=== PATIENT | female | born 1990 | race Caucasian/White ===

== ENCOUNTER 2017-07-24 13:19 | Emergency (ER) | payer OTHER ==
[2017-07-24 13:28] VITALS: BP 122/77; PULSE 86; RESP 20; TEMP 98.1
--- NOTE | 2017-07-24 13:38 | ED ---
General Adult HPI - General Chief complaint: Head Injury Stated complaint: Fall/Head Injury-[facility] Time Seen by Provider: 07/24/17 13:33 Source: patient, RN notes reviewed Mode of arrival: wheelchair Limitations: no limitations - History of Present Illness Initial comments: 27-year-old female presents to the emergency department with a chief complaint of fall. She slipped on the last step leaving a house and fell backwards onto her bottom and hit the back of her head. She states that she has a hard time remembering some of the events after the incident but she did not pass out. She states that she has little bit of a headache there is been no nausea or vomiting. Otherwise acting normally. She also admits to some left-sided low back pain from the fall as well. She thinks this is where she landed. She was able to get by herself. The incident and ambulate. At about a half since the incident. Patient was concerned due to the injury so she thought that she should be evaluated. Patient denies any recent fever, chills, shortness of breath, chest pain, abdominal pain, nausea vomiting, numbness or tingling, dysuria or hematuria, constipation or diarrhea, or visual changes, or any other current symptoms. - Related Data Home Medications Medication Instructions Recorded Confirmed No Known Home Medications [No 07/24/17 07/24/17 Known Home Medications] Allergies Allergy/AdvReac Type Severity Reaction Status Date / Time alprazolam [From Xanax] AdvReac PARANOID Verified 07/24/17 14:15 Review of Systems ROS Statement: Those systems with pertinent positive or pertinent negative responses have been documented in the HPI. ROS Other: All systems not noted in ROS Statement are negative. Past Medical History Past Medical History: No Reported History History of Any Multi-Drug Resistant Organisms: None Reported Past Surgical History: No Surgical Hx Reported Past Psychological History: No Psychological Hx Reported Smoking Status: Never smoker Past Alcohol Use History: Occasional Past Drug Use History: None Reported General Exam - General Exam Comments Initial Comments: General: The patient is awake and alert, in no distress, and does not appear acutely ill. Eye: Pupils are equal, round and reactive to light, extra-ocular movements are intact; there is normal conjunctiva bilaterally. No signs of icterus. Ears, nose, mouth and throat: There are moist mucous membranes. Neck: The neck is supple, there is no tenderness. Cardiovascular: There is a regular rate and rhythm. No murmur, rub or gallop is appreciated. Respiratory: Lungs are clear to auscultation, respirations are non-labored, breath sounds are equal. No wheezes, stridor, rales, or rhonchi. Gastrointestinal: Soft, non-distended, non-tender abdomen without masses or organomegaly noted. There is no rebound or guarding present. No CVA tenderness. Bowel sounds are unremarkable. Back: There is no tenderness to palpation in the midline. Tenderness over the left gluteal region. There is no obvious deformity. No rashes noted. Musculoskeletal: Normal ROM, no tenderness, There is no pedal edema. There is no calf tenderness or swelling. Sensation intact. Pulses equal bilaterally 2+. Neurological: CN II-XII intact, There are no obvious motor or sensory deficits. Coordination appears grossly intact. Speech is normal. Skin: Skin is warm and dry and no rashes or lesions are noted. Psychiatric: Cooperative, appropriate mood & affect, normal judgment. Limitations: no limitations Course Vital Signs 07/24/17 13:25 Temperature 98.1 F Pulse Rate 86 Respiratory 20 Rate Blood Pressure 122/77 O2 Sat by Pulse 100 Oximetry Medical Decision Making - Medical Decision Making 27-year-old female presents for a fall at work. At this time patient's imaging has been reviewed. At this time we discussed the patient's head injury as well as the lumbar strain. We discussed return parameters discussed follow-up and all questions. Patient family stated the C[facility] management this plan. All questions have been answered. They will be discharged. - Radiology Data Radiology results: report reviewed, image reviewed Disposition Clinical Impression: Concussion without loss of consciousness, Lumbar strain Disposition: HOME SELF-CARE Condition: Stable Instructions: Concussion (ED) Additional Instructions: Please use medication as discussed. Please follow up with family doctor if symptoms have not improved over the next two days. Please return to the emergency room if your symptoms increase or worsen or for any other concerns. Referrals: Arthur Campuzano MD [Primary Care Provider] - 1-2 days Time of Disposition: 14:22
--- NOTE | 2017-07-24 14:12 | CT ---
EXAMINATION TYPE: CT brain cspine wo con DATE OF EXAM: 07/24/2017 COMPARISON: CT brain and cervical spine April 15, 2014 HISTORY: fall/head injury with headache and neck pain. CT DLP: 2077 mGycm. Automated Exposure Control for Dose Reduction was Utilized. TECHNIQUE: CT scan of the head and cervical spine are performed without contrast. FINDINGS: There is no acute intracranial hemorrhage, mass effect, or midline shift identified. The ventricles and sulci are within normal limits in size. The globes are intact and the visualized sin uses are clear. The calvarium is intact. Cervical spine is visualized in its entirety from C1 through upper thoracic levels and demonstrates s traightened alignment without evidence of acute fracture or dislocation. Prevertebral soft tissue ap pears within normal limits. The C1-C2 articulation is within normal limits on the coronal images. A rtifact from patient's body habitus limits evaluation of lower cervical levels. Vertebral body height s and disc space heights are maintained. No large posterior disc herniations are seen on sagittal or axial images. Visualized lungs are grossly clear. Thyroid gland is felt within normal limits. IMPRESSION: 1. There is no acute fracture or dislocation evident in the cervical spine. 2. No acute intracranial hemorrhage, mass effect, or midline shift is seen.
--- NOTE | 2017-07-24 14:14 | XR ---
EXAMINATION TYPE: XR lumbar spine 2 or 3V DATE OF EXAM: 07/24/2017 CLINICAL HISTORY: Fall injury today with low back pain. TECHNIQUE: Frontal and lateral images of the lumbar spine are obtained. COMPARISON: None FINDINGS: There are 4 lumbar type vertebral bodies redemonstrated. There is a transitional L5 verteb ra redemonstrated. The lumbar spine shows satisfactory alignment without evidence of acute fracture or dislocation. Vertebral body heights and disk space heights are within normal limits. There is part ial visualization of surgical hardware in the right acetabulum on current lateral view. The overlying soft tissue appears unremarkable. IMPRESSION: No acute fracture or dislocation is seen in the lumbar spine.
== END 2017-07-24 14:35 | disposition home or self-care (01) ==
LOC: EC 13:19
DX: S06.0X0A Concussion without loss of consciousness, initial encounter (principal); S39.012A Strain of muscle, fascia and tendon of lower back, initial encounter; Z88.8 Allergy status to other drugs, medicaments and biological substances; W10.9XXA Fall (on) (from) unspecified stairs and steps, initial encounter; W22.8XXA Striking against or struck by other objects, initial encounter; Y92.69 Other specified industrial and construction area as the place of occurrence of the external cause; Y99.0 Civilian activity done for income or pay
CPT/HCPCS: 70450; 72100; 72125; 99284

== ENCOUNTER → 2020-10-06 | Outpatient (CLI) | payer BC ==
[2020-10-06 18:18] LABS: DHEA Sulfate 251.3 ug/dL (26.0-430.0)
[2020-10-06 18:46] LABS: Progesterone 0.7 ng/mL
[2020-10-06 18:49] LABS: Luteinizing Hormone 1.7 mIU/mL; Prolactin 7.3 ng/mL (2.8-29.2)
[2020-10-06 18:50] LABS: Follicle Stimulating Hormone 5.7 mIU/mL
== END | disposition home or self-care (01) ==
LOC: LABWHC1 09:06
PROVIDERS: ATTEND Obstetrics & Gynecology
DX: N91.2 Amenorrhea, unspecified (principal); N97.0 Female infertility associated with anovulation
CPT/HCPCS: 36415; 82397; 82627; 82670; 83001; 83002; 84144; 84146; 84403

== ENCOUNTER → 2020-12-13 | Outpatient (CLI) | payer BC | END | disposition home or self-care (01) | LOC: LABWHC1 12:19 | PROVIDERS: ATTEND Obstetrics & Gynecology | DX: N97.0 Female infertility associated with anovulation (principal) | CPT/HCPCS: 36415; 84144 ==

== ENCOUNTER 2021-09-20 10:32 | Outpatient (CLI) | payer BC ==
[2021-09-20 11:29] LABS: Amorphous Sediment,Urine Rare /hpf; Appearance,Urine Turbid (Clear); Bacteria,Urine Few /hpf; Bilirubin,Urine Negative (Negative); Blood,Urine Negative (Negative); Color,Urine Yellow; Glucose,Urine (UA) Negative (Negative); Ketones,Urine Negative (Negative); Leukocyte Esterase,Urine Large (Negative); Mucus,Urine Many /hpf; Nitrite,Urine Negative (Negative); Protein,Urine 1+ (Negative); RBC,Urine 6 /hpf (0-5); Specific Gravity,Urine 1.023 (1.001-1.035); Squamous Epithelial Cell,Urine 37 /hpf (0-4); Urobilinogen,Urine <2.0 mg/dL (<2.0); WBC,Urine 168 /hpf (0-5)
[2021-09-20 12:19] VITALS: BP 120/62; PULSE 100; RESP 18; TEMP 97.4
--- NOTE | 2021-10-06 12:37 | P.MSEPDOC ---
Presenting Problems - Arrival Data Date of Arrival on Unit: 09/20/21 Time of Arrival on Unit: 10:32 Mode of Transport: Ambulatory - Complaint OB-Reason for Admission/Chief Complaint: Other Comment: pt presents to triage for elevated bp's at home, 140's/80's, heaches and swelling in hands and feet, and face, Medical History - Information : 1 Para: 0 Term: 0 : 0 Abortions: Spontaneous or Elective: 0 Number of Living Children: 0 - Gestational Age Gestational Age by KRYSTAL (wks/days): 38 Weeks and 4 Days - History Complications: GBS+ Comment: pt is scheduled section on 09/26 Review of Systems - Review of Systems Constitutional: No problems Breast: No problems ENT: No problems Cardiovascular: No problems Respiratory: No problems Gastrointestinal: No problems Genitourinary: No problems Musculoskeletal: No problems Neurological: No problems Skin: No problems Vital Signs - Temperature Temperature: 97.4 F Temperature Source: Temporal Artery Scan - Pulse Right Brachial Pulse Rate: 100 Pulse Assessment Method: Automatic Cuff - Respirations Respiratory Rate: 18 Oxygen Delivery Method: Room Air - Blood Pressure Right Arm Blood Pressure: 120/62 Blood Pressure Mean: 81 Blood Pressure Source: Automatic Cuff Medical Screen Scoring - Assessment - Baby A Baseline FHR: 140 Heart Rate - NICHD Category: Category I (Normal) NST: Reactive Physician Notification - Physician Notified Physician Notified Date: 09/20/21 Physician Notified Time: 11:17 Physician: Nemo Street Order Received: Yes - Notification Comment Comment: pt's bp's wnl while in triage, ua was sent, urine culture ordered, reactive nst, pt to follow up with Dr. Street on Saturday in the office at scheduled appt Maternal Triage Index - Maternal Triage Index Presenting for scheduled procedure w/no complaint: No - Stat/Priority 1 Stat Priority 1: No - Urgent/Priority 2 Urgent Priority 2: No - Prompt/Priority 3 Prompt Priority 3: Yes Criteria Met for Priority 3: pt presents to triage for elevated bp's at home, headaches and swelling, 38 2/7 GA Disposition - Disposition OB Disposition: Triage, Discharge to home, Written follow up instructions reviewed Discharge Date: 09/20/21 Discharge Time: 11:55 I agree with the RN Medical Screening Exam: Yes Case reviewed; plan agreed upon as documented in EMR&OBIX.: Yes Diagnosis: OTHER SPECIFIED COMPLICATIONS OF LABOR AND DELIVERY
== END 2021-09-20 11:55 | disposition home or self-care (01) ==
LOC: FBPOP 10:32
PROVIDERS: ATTEND Obstetrics & Gynecology
DX: O26.893 Other specified pregnancy related conditions, third trimester (principal); R51.9 Headache, unspecified; M79.89 Other specified soft tissue disorders; Z3A.38 38 weeks gestation of pregnancy
CPT/HCPCS: 59025; 81001; 87086; 99215

== ENCOUNTER 2021-09-26 05:58 | Inpatient (IN) | payer BC ==
[2021-09-26] MEDS ORDERED: LACTATED RINGERS 1,000 ML IV ONE (06:28)
[2021-09-26] MEDS ORDERED: CITRIC ACID-SODIUM CITRATE 15 ML CUP PO ONE (06:28)
[2021-09-26 06:45] LABS: Basophils % (A) 0 %; Eosinophils % (A) 1 %; HCT 34.3 % (34.0-46.0); HGB 11.7 gm/dL (11.4-16.0); Lymphocytes # (A) 1.1 k/uL (1.0-4.8); Lymphocytes % (A) 18 %; MCH 31.1 pg (25.0-35.0); MCHC 34.1 g/dL (31.0-37.0); MCV 91.4 fL (80.0-100.0); Mean Platelet Volume 9.2; Monocytes # (A) 0.4 k/uL (0-1.0); Monocytes % (A) 6 %; Neutrophils # (A) 4.8 k/uL (1.3-7.7); Neutrophils % (A) 74 %; Platelet Count 224 k/uL (150-450); RBC 3.76 m/uL (3.80-5.40); RDW 13.9 % (11.5-15.5); WBC 6.4 k/uL (3.8-10.6)
[2021-09-26] MEDS ORDERED: ceFAZolin 3 GM in SODIUM CHLORIDE 0.9% 100 ML IVPB ONE (07:00)
--- NOTE | 2021-09-26 07:41 | P.HPOB ---
History of Present Illness H&P Date: 09/26/21 Chief Complaint: primary low transverse 31-year-old presents at 39 weeks and 1 day for a primary low transverse C- section. She has a history of an acetabulum reconstruction on the right hip. She's been having pain with this. Throughout the and she would be unable to get in any proper position to deliver the baby vaginally. Review of Systems All systems: negative Constitutional: Denies chills, Denies fever Eyes: denies blurred vision, denies pain Ears, nose, mouth and throat: Denies headache, Denies sore throat Cardiovascular: Denies chest pain, Denies shortness of breath Respiratory: Denies cough Gastrointestinal: Denies abdominal pain, Denies diarrhea, Denies nausea, Denies vomiting Genitourinary: Denies dysuria, Denies hematuria Musculoskeletal: Denies myalgias Integumentary: Denies pruritus, Denies rash Neurological: Denies numbness, Denies weakness Psychiatric: Denies anxiety, Denies depression Endocrine: Denies fatigue, Denies weight change Past Medical History Past Medical History: No Reported History History of Any Multi-Drug Resistant Organisms: None Reported Past Surgical History: Orthopedic Surgery Additional Past Surgical History / Comment(s): Right hip sx Past Anesthesia/Blood Transfusion Reactions: No Reported Reaction Past Psychological History: No Psychological Hx Reported Smoking Status: Never smoker Past Alcohol Use History: Occasional Past Drug Use History: None Reported - Past Family History Mother Family Medical History: Deep Vein Thrombosis (DVT) Medications and Allergies Home Medications Medication Instructions Recorded Confirmed Type Pnv No.95/Ferrous Fum/Folic AC 1 tab PO DAILY 09/20/21 09/26/21 History [ Multivitamin Tablet] Allergies Allergy/AdvReac Type Severity Reaction Status Date / Time alprazolam [From Xanax] AdvReac PARANOID Verified 09/26/21 06:25 Exam Osteopathic Statement: *. No significant issues noted on an osteopathic structural exam other than those noted in the History and Physical/Consult. Vital Signs Temp Pulse Resp BP Pulse Ox 09/26/21 06:15 97.6 F 84 17 127/69 98 Intake and Output 09/25/21 09/26/21 09/26/21 22:59 06:59 14:59 Other: Weight 129.274 kg Heart: Regular rate and rhythm Lungs: Clear to auscultation bilaterally Abdomen: Soft, nontender Extremities: Negative Homans sign Results Result Diagrams: 09/26/21 06:25 Abnormal Lab Results - Last 24 Hours (Table) 09/26/21 Range/Units 06:25 RBC 3.76 L (3.80-5.40) m/uL Assessment and Plan (1) 39 weeks gestation of Current Visit: Yes Status: Acute Code(s): Z3A.39 - 39 WEEKS GESTATION OF SNOMED Code(s): 35374831 (2) History of hip surgery Current Visit: Yes Status: Acute Code(s): Z98.890 - OTHER SPECIFIED POS TPROCEDURAL STATES SNOMED Code(s): 122465971 Plan: 1. primary low transverse
[2021-09-26] MEDS ORDERED: KETOROLAC 15 MG/ML 1 ML VIAL ONE (07:53)
[2021-09-26] MEDS ORDERED: ONDANSETRON 4 MG/2 ML VIAL ONE (07:53)
[2021-09-26] MEDS ORDERED: MORPHINE SULFATE (PF) 0.3 MG/0.3 ML SYR ONE (07:53)
[2021-09-26] MEDS ORDERED: OXYTOCIN 30 UNITS/500 ML NS BAG IV ONE (07:53)
[2021-09-26] MEDS ORDERED: NALBUPHINE 10 MG/ML (1 ML AMP) ONE (07:53)
--- NOTE | 2021-09-26 08:40 | P.OP ---
Date of Procedure: 09/26/21 Preoperative Diagnosis: 1. at 39 weeks 1 day 2. history of acetabulum reconstruction, hip pain Postoperative Diagnosis: 1. at 39 weeks 1 day 2. history of acetabulum reconstruction, hip pain Procedure(s) Performed: Primary low transverse Anesthesia: spinal Surgeon: Nemo Street [employer] Supervisor #1: Pravin Salinas Estimated Blood Loss (ml): 400 IV fluids (ml): 700 Urine output (ml): 100 Pathology: none sent Condition: stable Disposition: floor Operative Findings: viable male. Apgars 9,9. weight 9#7oz. normal uterus, tubes and ovaries Description of Procedure: Patient was taken to the operating room where spinal anesthesia was found be adequate. She was prepped and draped in normal sterile fashion in dorsal supine position with a leftward tilt. Pfannenstiel skin incision was made the scalpel and carried through to the underlying layer of fascia with the scalpel. Fascia was incised in midline and carried bilaterally with the Rodriguez scissors. The supe rior aspect of the fascial incision was grasped with Mel clamps elevated and the underlying rectus muscles dissected off with the Rodriguez's. Attention was then turned to inferior aspect of same incision which in a similar fashion was grasped tented up and the underlying rectus muscles dissected off with the Rodriguez's. The rectus muscles were the midline and the peritoneum was identified tented up and entered sharply with the scalpel. The incision was extended superiorly and inferiorly with good visualization of the bladder. The bladder blade was inserted and the vesicouterine peritoneum was incised the Metzenbaums then carried bilaterally and bladder flap created digitally. A low transverse incision was then made on the uterus with the scalpel. This was carried bilaterally and digital manner. Infant's head delivered atraumatically, nose and mouth bulb suctioned, cord clamped and cut, infant handed off to waiting nurses. Apgars 9,9, weight 9 lbs. 7 oz. Placenta delivered manually, intact with three-vessel cord. The uterus is exteriorized and cleared of all clots and debris. The uterine incision was closed with 0 Vicryl in a running locked fashion. Second layer of the same sutures used in imbricating fashion to obtain excellent hemostasis. Both ovaries and tubes appeared normal. The uterus was placed back into the abdomen. The peritoneum was reapproximated us ing 2-0 Vicryl in a running fashion. The muscles were reapproximated using 2-0 Vicryl in interrupted fashion. The fascia was reapproximated using 0 Vicryl in a running fashion. The subcutaneous tissues closed with 3-0 Vicryl running fashion. The skin was closed jamil. Patient tolerated the procedure well, sponge and instrument counts were correct times 2 and she was taken to the recovery room in stable condition.
[2021-09-26] MEDS: LACTATED RINGERS 1,000 ML IV SCH ×4 (09:49→23:30)
[2021-09-26] MEDS ORDERED: diphenhydrAMINE 50 MG CAP PO PRN (10:41)
[2021-09-26] MEDS ORDERED: METOCLOPRAMIDE 5 MG/ML 2 ML VIAL IVP PRN (10:41)
[2021-09-26] MEDS ORDERED: diphenhydrAMINE 25 MG CAP PO PRN (10:41)
[2021-09-26] MEDS ORDERED: ONDANSETRON 4 MG/2 ML VIAL IVP PRN (10:41)
[2021-09-26] MEDS ORDERED: NALOXONE 0.4 MG/ML 1 ML VIAL IV PRN (10:41)
[2021-09-26] MEDS ORDERED: diphenhydrAMINE 50 MG/ML 1 ML VIAL IVP PRN ×2 (10:41)
[2021-09-26] MEDS ORDERED: ZOLPIDEM 5 MG TAB PO PRN (10:41)
[2021-09-26] MEDS ORDERED: SIMETHICONE 80 MG CHEWABLE PO PRN (10:41)
[2021-09-26] MEDS ORDERED: OXYTOCIN 30 UNITS/500 ML NS 30 UNIT in SALINE 1 500ML.BAG IV SCH (10:45)
[2021-09-26] MEDS: ACETAMINOPHEN TAB 500 MG TAB PO SCH ×2 (13:14→20:25)
[2021-09-26] MEDS: KETOROLAC 15 MG/ML 1 ML VIAL IVP SCH ×2 (15:11→21:19)
[2021-09-26] MEDS: IBUPROFEN 600 MG TAB PO SCH ×2 (15:12→23:30)
[2021-09-26] MEDS: SENNOSIDES-DOCUSATE SODIUM 1 EACH TAB PO SCH (20:24)
[2021-09-27] MEDS: ACETAMINOPHEN TAB 500 MG TAB PO SCH ×4 (01:43→20:04)
[2021-09-27] MEDS: LACTATED RINGERS 1,000 ML IV SCH ×3 (03:28→05:09)
[2021-09-27] MEDS: KETOROLAC 15 MG/ML 1 ML VIAL IVP SCH (04:10)
[2021-09-27] MEDS: IBUPROFEN 600 MG TAB PO SCH ×4 (05:08→22:57)
--- NOTE | 2021-09-27 07:45 | P.PN ---
Progress Note - Text Progress Note Date: 09/27/21 Ms. Calzada is a 31-year-old female had a history of under spinal anal gesia with Astramorph 300 g for postop pain. Today patient is comfortable sitting in her bed. Today patient rated her pain level 4-5 out of 10 in severity. Denied any fever, drowsiness, confusion. Denied any weakness, tingling sensation in her lower extremities. Denied any bowel or bladder problems. Moving all extremities without any difficulty. Able to walk without any difficulties. Vitals: Hemodynamically stable Continue oral pain medication as per primary team.
[2021-09-27] MEDS: SENNOSIDES-DOCUSATE SODIUM 1 EACH TAB PO SCH ×2 (09:40→20:05)
[2021-09-27 11:01] LABS: Basophils % (A) 0 %; Eosinophils % (A) 0 %; HCT 28.4 % (34.0-46.0); Lymphocytes # (A) 0.8 k/uL (1.0-4.8); Lymphocytes % (A) 13 %; MCH 31.2 pg (25.0-35.0); MCV 94.5 fL (80.0-100.0); Mean Platelet Volume 9.1; Monocytes # (A) 0.3 k/uL (0-1.0); Monocytes % (A) 5 %; Neutrophils # (A) 4.7 k/uL (1.3-7.7); Neutrophils % (A) 79 %; Platelet Count 170 k/uL (150-450); RDW 14.6 % (11.5-15.5)
[2021-09-27 11:09] LABS: HGB 9.4 gm/dL (11.4-16.0)
--- NOTE | 2021-09-27 13:13 | P.PNOBGPC ---
Subjective - Subjective Principal diagnosis: S/P 1*LTCS POD #1 Interval history: Pt seen and examined. denies N/V, F/C, CP, SOB or calf pain. Patient reports: Reports appetite normal, Reports voiding normally, Reports pain well controlled, Reports ambulating normally [place]: doing well Objective - Vital Signs Latest vital signs: Vital Signs Temp Pulse Resp BP Pulse Ox 09/27/21 08:00 97.8 F 101 H 16 122/82 95 09/27/21 04:00 98.0 F 84 16 107/57 98 09/27/21 00:00 97.9 F 77 16 115/74 98 09/26/21 20:00 98.1 F 81 15 125/80 99 09/26/21 16:00 98.1 F 84 16 109/71 96 Intake and Output 09/26/21 09/27/21 09/27/21 22:59 06:59 14:59 Intake Total 500 480 Output Total 100 1250 300 Balance 400 -770 -300 Intake: Oral 500 480 Output: Urine 100 1250 300 Straight 350 Uretheral (Dai) 100 Other: # Voids 2 # Bowel Movements 1 - Exam Lungs: bilateral: normal Chest: Normal S1, Normal S2 Extremities: Present: normal Abdomen: Present: normal appearance, soft. Absent: distention, tenderness Incision: Present: normal, dry, intact Uterus: Present: normal, firm - Labs Labs: Abnormal Lab Results - Last 24 Hours (Table) 09/27/21 Range/Units 09:57 RBC 3.00 L (3.80-5.40) m/uL Hgb 9.4 L D (11.4-16.0) gm/dL Hct 28.4 L (34.0-46.0) % Lymphocytes # 0.8 L (1.0-4.8) k/uL Assessment and Plan (1) 39 weeks gestation of Current Visit: Yes Status: Resolved Code(s): Z3A.39 - 39 WEEKS GESTATION OF SNOMED Code(s): 30921869 (2) History of hip surgery Current Visit: Yes Status: Chronic Code(s): Z98.890 - OTHER SPECIFIED POSTPROCEDURAL STATES SNOMED Code(s): 508672777 (3) Status post primary low transverse section Current Visit: Yes Status: Acute Code(s): Z98.891 - HISTORY OF UTERINE SCAR FROM PREVIOUS SURGERY SNOMED Code(s): 609014247 Plan: 1. cont pp and po care 2. increase ambulation
[2021-09-27 23:11] VITALS: RESP 16
[2021-09-28] MEDS: ACETAMINOPHEN TAB 500 MG TAB PO SCH ×2 (04:35→09:52)
[2021-09-28] MEDS: IBUPROFEN 600 MG TAB PO SCH (05:53)
[2021-09-28] MEDS: SENNOSIDES-DOCUSATE SODIUM 1 EACH TAB PO SCH (08:44)
[2021-09-28 08:48] VITALS: BP 108/71; PULSE 94; TEMP 97.8
--- NOTE | 2021-09-28 08:53 | P.DS ---
Providers Date of admission: 09/26/21 05:58 Expected date of discharge: 09/28/21 Attending physician: Nemo Street Primary care physician: Stated None - Discharge Diagnosis(es) (1) 39 weeks gestation of Current Visit: Yes Status: Resolved (2) History of hip surgery Current Visit: Yes Status: Chronic (3) Status post primary low transverse section Current Visit: Yes Status: Acute Hospital Course: Patient presented for primary low transverse due to a history of orthopedic surgery on her right hip, leaving her with limited range of motion. Gen. at this procedure without Location. Denies nausea, vomiting, chest pain, shortness of breath or any calf pain. She's ablating voiding without difficulty, tolerating regular diet and passing flatus. Her incision is clean, dry, intact. Patient will be discharged home post operative day #2 in stable condition to follow-up with me in one week. Plan - Discharge Summary New Discharge Prescriptions: New Ibuprofen [Motrin] 600 mg PO Q6H #40 tab oxyCODONE HCL [OxyIR] 5 mg PO Q6HR PRN #12 tab PRN Reason: Breakthrough Pain No Action Pnv No.95/Ferrous Fum/Folic AC [ Multivitamin Tablet] 1 tab PO DAILY Discharge Medication List Pnv No.95/Ferrous Fum/Folic AC [ Multivitamin Tablet] 1 tab PO DAILY 09/20/21 [History] Ibuprofen [Motrin] 600 mg PO Q6H #40 tab 09/28/21 [Rx] oxyCODONE HCL [OxyIR] 5 mg PO Q6HR PRN #12 tab 09/28/21 [Rx] Follow up Appointment(s)/Referral(s): Nemo Street DO [Doctor of Osteopathic Medicine] - 11/06/21 11:15 am (c/s post op appt-10/03/21@1:30pm) Discharge Disposition: HOME SELF-CARE
== END 2021-09-28 12:45 | disposition home or self-care (01) | DRG 788 ==
LOC: 4FBP 05:58
PROVIDERS: ADMIT Obstetrics & Gynecology; ATTEND Obstetrics & Gynecology
PROC: 10D00Z1 Extraction of Products of Conception, Low, Open Approach (ICD-10-PCS; principal; 2021-09-26 08:00)
DX: O80 Encounter for full-term uncomplicated delivery (principal); Z3A.39 39 weeks gestation of pregnancy; Z37.0 Single live birth; Z88.8 Allergy status to other drugs, medicaments and biological substances
CPT/HCPCS: 85025; 86850; 86900; 86901

== ENCOUNTER 2024-06-09 16:15 | Outpatient (CLI) | payer BC ==
[2024-06-09 17:42] VITALS: BP 128/60; PULSE 87; RESP 16; TEMP 96.4
--- NOTE | 2024-06-09 17:45 | US ---
EXAMINATION TYPE: US OB BPP wo non-stress DATE OF EXAM: 06/09/2024 COMPARISON: NONE CLINICAL INDICATION: Female, 34 years old with history of GDM; GDM. Patient gets this done every week . States hx of polyhydramnios. TECHNIQUE: Transabdominal (TA). Scoring by the animal cruelty investigator during real-time assessment. FINDINGS: BPP PARAMETERS: PRESENTATION: Vertex LIE: Longitudinal?? HEART RATE: 136 bpm RHYTHM: Normal DELROY: 17.4 DIAPHRAGM IMAGED: yes BPP SCORIN. Breathin (1 episode of breathing of 30 second duration in 30 minutes of scanning time) 2. Movement: 2 (at least 3 discrete body movements in 30 minutes) 3. Tone: 2 (1 episode of active flexion/extension of limb) 4. DELROY: 2 (DELROY index > 5cm) COMMERCIAL LITIGATION ATTORNEY NOTES: BPP WNL IMPRESSION: TOTAL SCORE: 8 / 8 [facility], , 06/09/2024 5:43 PM
== END 2024-06-09 17:40 | disposition home or self-care (01) ==
LOC: FBPOP 16:15
PROVIDERS: ATTEND Obstetrics & Gynecology
DX: O24.419 Gestational diabetes mellitus in pregnancy, unspecified control (principal); Z3A.34 34 weeks gestation of pregnancy; Z88.8 Allergy status to other drugs, medicaments and biological substances
CPT/HCPCS: 59025; 76819

== ENCOUNTER 2024-07-04 21:05 | Outpatient (CLI) | payer BC ==
[2024-07-04 21:51] LABS: Appearance,Urine Cloudy (Clear); Bacteria,Urine Rare /hpf; Bilirubin,Urine Negative (Negative); Blood,Urine Negative (Negative); Color,Urine Yellow; Glucose,Urine (UA) 1+ (Negative); Hyaline Casts,Urine 3 /lpf (0-2); Ketones,Urine Negative (Negative); Leukocyte Esterase,Urine Large (Negative); Mucus,Urine Moderate /hpf; Nitrite,Urine Negative (Negative); PH, Urine 5.5 (5.0-8.0); Protein,Urine Trace (Negative); RBC,Urine 2 /hpf (0-5); Specific Gravity,Urine 1.027 (1.001-1.035); Squamous Epithelial Cell,Urine 28 /hpf (0-4); Urobilinogen,Urine <2.0 mg/dL (<2.0); WBC,Urine 33 /hpf (0-5)
[2024-07-04 23:22] VITALS: BP 129/62; PULSE 92; RESP 16; TEMP 96.8
--- NOTE | 2024-07-05 12:03 | P.MSEPDOC ---
Presenting Problems - Arrival Data Date of Arrival on Unit: 07/04/24 Time of Arrival on Unit: 21:05 Mode of Transport: Ambulatory - Complaint OB-Reason for Admission/Chief Complaint: Headache, Other Comment: Notified of pt complaints of headache x3 days, swelling, increased bp at home Medical History - Information : 2 Para: 1 Term: 1 : 0 Abortions: Spontaneous or Elective: 0 Number of Living Children: 1 - Gestational Age Gestational Age by KRYSTAL (wks/days): 38 Weeks and 1 Days - History Complications: GDM Review of Systems - Review of Systems Constitutional: No problems Breast: No problems ENT: No problems Cardiovascular: No problems Respiratory: No problems Gastrointestinal: No problems Genitourinary: No problems Musculoskeletal: No problems Neurological: No problems Skin: No problems Vital Signs - Temperature Temperature: 96.8 F Temperature Source: Temporal Artery Scan - Pulse Pulse Oximetery Pulse Rate: 92 Pulse Assessment Method: Pulse Oximetry - Respirations Respiratory Rate: 16 Oxygen Delivery Method: Room Air O2 Sat by Pulse Oximetry: 98 - Blood Pressure Right Arm Blood Pressure: 129/62 Blood Pressure Mean: 84 Blood Pressure Source: Automatic Cuff Medical Screen Scoring - Cervical Exam Membranes: Intact - Uterine Contractions Frequency From (mins): 2 Frequency To (mins): 5 Duration From (seconds): 50 Duration To (seconds): 80 Intensity: Mild Resting: Soft to palpation - Assessment - Baby A Baseline FHR: 145 Heart Rate - NICHD Category: Category I (Normal) NST: Reactive Physician Notification - Physician Notified Physician Notified Date: 07/04/24 Physician Notified Time: 21:13 Physician: Peña Moss Order Received: Yes - Notification Comment Comment: Orders for U/A, PIH labs if inital BP elevated. Maternal Triage Index - Maternal Triage Index Presenting for scheduled procedure w/no complaint: No - Stat/Priority 1 Stat Priority 1: No - Urgent/Priority 2 Urgent Priority 2: No - Prompt/Priority 3 Prompt Priority 3: No - Non-Urgent/Priority 4 Non-Urgent Priority 4: Yes Criteria Met for Priority 4: Notified of pt complaints of headache x3 days, swelling, increased bp at home Disposition - Disposition OB Disposition: Discharge to home Discharge Date: 07/04/24 Discharge Time: 23:00 I agree with the RN Medical Screening Exam: Yes Physician's MSE Comment: I have neither seen nor examined the patient. Case reviewed; plan agreed upon as documented in EMR&OBIX.: Yes Diagnosis: RELATED CONDITIONS, UNSPECIFIED, THIRD TRIMESTER
== END 2024-07-04 23:00 | disposition home or self-care (01) ==
LOC: FBPOP 21:05
PROVIDERS: ATTEND Obstetrics & Gynecology
DX: O24.419 Gestational diabetes mellitus in pregnancy, unspecified control (principal); O26.893 Other specified pregnancy related conditions, third trimester; R51.9 Headache, unspecified; R03.0 Elevated blood-pressure reading, without diagnosis of hypertension; Z3A.38 38 weeks gestation of pregnancy; Z88.8 Allergy status to other drugs, medicaments and biological substances
CPT/HCPCS: 59025; 81001; 99213

== ENCOUNTER 2024-07-10 05:57 | Inpatient (IN) | payer BC ==
[2024-07-10] MEDS ORDERED: CARBOPROST TROMETHAMINE 250 MCG/ML 1 ML AMP IM PRN (06:13)
[2024-07-10] MEDS ORDERED: METHYLERGONOVINE 0.2 MG/ML 1 ML AMP IM PRN (06:13)
[2024-07-10] MEDS ORDERED: TRANEXAMIC 1,000 MG/100ML-NACL 1,000 MG in EMPTY BAG 1 BAG IV PRN (06:13)
[2024-07-10] MEDS ORDERED: OXYTOCIN 10 UNIT/ML 1 ML VIAL IM PRN (06:13)
[2024-07-10] MEDS ORDERED: miSOPROStoL 200 MCG TAB PO PRN (06:13)
[2024-07-10 06:27] LABS: Glucose,Whole Blood 98 mg/dL (70-110)
[2024-07-10] MEDS: LACTATED RINGERS 1,000 ML IV SCH ×2 (06:27→21:33)
[2024-07-10 06:39] LABS: Basophils % (A) 0 %; Eosinophils # (A) 0.1 k/uL (0-0.7); Eosinophils % (A) 1 %; HGB 11.4 gm/dL (11.4-16.0); Lymphocytes # (A) 1.4 k/uL (1.0-4.8); Lymphocytes % (A) 20 %; MCH 30.2 pg (25.0-35.0); MCHC 33.6 g/dL (31.0-37.0); MCV 89.9 fL (80.0-100.0); Mean Platelet Volume 8.1; Monocytes # (A) 0.4 k/uL (0-1.0); Monocytes % (A) 6 %; Neutrophils # (A) 5.2 k/uL (1.3-7.7); Neutrophils % (A) 71 %; Platelet Count 245 k/uL (150-450); RBC 3.78 m/uL (3.80-5.40); RDW 14.1 % (11.5-15.5); WBC 7.3 k/uL (3.8-10.6)
[2024-07-10] MEDS: ceFAZolin 3 GM in SODIUM CHLORIDE 0.9% 100 ML IVPB ONE (07:23)
[2024-07-10] MEDS: CITRIC ACID-SODIUM CITRATE 15 ML CUP PO ONE (07:23)
--- NOTE | 2024-07-10 07:47 | P.HPOB ---
History of Present Illness H&P Date: 07/10/24 Chief Complaint: repeat low transverse 34 year old presents at 39 weeks for repeat low transverse with bilateral salpingectomy. Review of Systems All systems: negative Constitutional: Denies chills, Denies fever Eyes: denies blurred vision, denies pain Ears, nose, mouth and throat: Denies headache, Denies sore throat Cardiovascular: Denies chest pain, Denies shortness of breath Respiratory: Denies cough Gastrointestinal: Denies abdominal pain, Denies diarrhea, Denies nausea, Denies vomiting Genitourinary: Denies dysuria, Denies hematuria Musculoskeletal: Denies myalgias Integumentary: Denies pruritus, Denies rash Neurological: Denies numbness, Denies weakness Psychiatric: Denies anxiety, Denies depression Endocrine: Denies fatigue, Denies weight change Past Medical History Past Medical History: No Reported History History of Any Multi-Drug Resistant Organisms: None Reported Past Surgical History: Orthopedic Surgery Additional Past Surgical History / Comment(s): Right hip sx Past Anesthesia/Blood Transfusion Reactions: No Reported Reaction Past Psychological History: No Psychological Hx Reported Smoking Status: Never smoker Past Alcohol Use History: Occasional Past Drug Use History: None Reported - Past Family History Mother Family Medical History: Deep Vein Thrombosis (DVT) Medications and Allergies Home Medications Medication Instructions Recorded Confirmed Type Pnv No.95/Ferrous Fum/Folic AC 1 tab PO DAILY 09/20/21 07/10/24 History [ Multivitamin Tablet] Allergies Allergy/AdvReac Type Severity Reaction Status Date / Time alprazolam [From Xanax] AdvReac PARANOID Verified 07/10/24 06:01 Exam Osteopathic Statement: *. No significant issues noted on an osteopathic structural exam other than those noted in the History and Physical/Consult. Vital Signs Temp Pulse Resp BP Pulse Ox 07/10/24 06:01 97.1 F L 92 16 128/69 98 Intake and Output 07/09/24 07/10/24 07/10/24 22:59 06:59 14:59 Other: Weight 127.913 kg Heart: Regular rate and rhythm Lungs: Clear to auscultation bilaterally Abdomen: Soft, nontender Extremities: Negative Homans sign Results Result Diagrams: 07/10/24 06:20 Abnormal Lab Results - Last 24 Hours (Table) 07/10/24 Range/Units 06:20 RBC 3.78 L (3.80-5.40) m/uL Assessment and Plan (1) 39 weeks gestation of Current Visit: No Status: Resolved Code(s): Z3A.39 - 39 WEEKS GESTATION OF SNOMED Code(s): 86808233 (2) Previous section Current Visit: Yes Status: Acute Code(s): Z98.891 - HISTORY OF UTERINE SCAR FROM PREVIOUS SURGERY SNOMED Code(s): 270421078 (3) Family planning Current Visit: Yes Status: Acute Code(s): Z30.09 - ENCOUNTER FOR OT GENERAL CNSL AND ADVICE ON CONTRACEPTION SNOMED Code(s): 635051080 Plan: 1. repeat low transverse with bilateral salpingectomy
[2024-07-10] MEDS ORDERED: KETOROLAC 15 MG/ML 1 ML VIAL ONE (08:00)
[2024-07-10] MEDS ORDERED: PHENYLEPHRINE-0.9% NACL SYG 1,000 MCG/10 ML SYRINGE ONE (08:00)
[2024-07-10] MEDS ORDERED: ONDANSETRON 4 MG/2 ML VIAL ONE (08:00)
[2024-07-10] MEDS ORDERED: OXYTOCIN 30 UNITS/500 ML NS BAG IV ONE (08:00)
[2024-07-10] MEDS ORDERED: MORPHINE SULFATE (PF) 0.3 MG/0.3 ML SYR ONE (08:00)
[2024-07-10] MEDS ORDERED: ZOLPIDEM 5 MG TAB PO PRN (08:47)
[2024-07-10] MEDS ORDERED: METOCLOPRAMIDE 5 MG/ML 2 ML VIAL IVP PRN (08:47)
[2024-07-10] MEDS ORDERED: diphenhydrAMINE 25 MG CAP PO PRN (08:47)
[2024-07-10] MEDS ORDERED: ONDANSETRON 4 MG/2 ML VIAL IVP PRN (08:47)
[2024-07-10] MEDS ORDERED: NALOXONE 0.4 MG/ML 1 ML VIAL IV PRN (08:47)
[2024-07-10] MEDS ORDERED: LANOLIN CREAM 1 GM TUBE TOPICAL PRN (08:47)
[2024-07-10] MEDS ORDERED: diphenhydrAMINE 50 MG CAP PO PRN (08:47)
--- NOTE | 2024-07-10 08:52 | P.OP ---
Date of Procedure: 07/10/24 Preoperative Diagnosis: 1. 39 weeks gestation 2. previous 3. family planning Postoperative Diagnosis: same Procedure(s) Performed: Repeat low transverse with bilateral salpingectomy with LigaSure Anesthesia: spinal Surgeon: Nemo Street Edge Trimming Machine Operator #1: Diana Matt Estimated Blood Loss (ml): 484 IV fluids (ml): 1,000 Urine output (ml): 50 Pathology: other (fallopian tubes) Condition: stable Disposition: floor Operative Findings: viable female. 8,9, weight 9#5oz Description of Procedure: Patient was taken to the operating room where spinal anesthesia was found be adequate. She was prepped and draped in normal sterile fashion in dorsal supine position with a leftward tilt. Pfannenstiel skin incision was made the scalpel and carried through to the underlying layer of fascia with the scalpel. Fascia was incised in midline and carried bilaterally with the Rodriguez scissors. The superior aspect of the fascial incision was grasped with Avera clamps elevated and the underlying rectus muscles dissected off with the Rodriguez's. Attention was then turned to inferior aspect of same incision which in a similar fashion was grasped tented up and the underlying rectus muscles dissected off with the Rodriguez's. The rectus muscles were the midline and the peritoneum was identified tented up and entered sharply with the scalpel. The incision was extended superiorly and inferiorly with good visualization of the bladder. The bladder blade was inserted and the vesicouterine peritoneum was incised the Metzenbaums then carried bilaterally and bladder flap created digitally. A low transverse incision was then made on the uterus with the scalpel. This was carried bilaterally and digital manner. Infant's head delivered atraumatically, nose and mouth bulb suctioned, cord clamped and cut, handed off to waiting nurses. Apgars 8,9, weight 9 lbs. 5 oz. Placenta delivered manually, intact with three-vessel cord. The uterus is exteriorized and cleared of all clots and debris. The uterine incision was closed with 0 Vicryl in a running locked fashion. Second layer of the same sutures used in imbricating fashion to obtain excellent hemostasis. Both ovaries and tubes appeared normal. The right fallopian tube was grasped with a Turkish and the LigaSure was used to seal and cut along the mesosalpinx to remove the right fallopian tube. Same was done on left side the left fallopian tube was grasped in the left mesosalpinx was sealed and cut using the LigaSure. Hemostasis was assured. When the uterus was placed back into the abdomen and was a little bleeding at the lower uterine incision so surgical cautery was placed. The muscles were reapproximated using 2-0 Vicryl in interrupted fashion. The fascia was reapproximated using 0 Vicryl in a running fashion. The subcutaneous tissues closed with 3-0 Vicryl running fashion. The skin was closed jamil. Patient tolerated the procedure well, sponge and instrument counts were correct times 2 and she was taken to the recovery room in stable condition.
[2024-07-10] MEDS ORDERED: OXYTOCIN 30 UNITS/500 ML NS 30 UNIT in SALINE 1 500ML.BAG IV SCH (09:00)
[2024-07-10] MEDS: diphenhydrAMINE 50 MG/ML 1 ML VIAL IVP PRN ×2 (12:06→18:58)
[2024-07-10] MEDS: ACETAMINOPHEN TAB 500 MG TAB PO SCH (12:07)
[2024-07-10] MEDS: KETOROLAC 15 MG/ML 1 ML VIAL IVP SCH (14:18)
[2024-07-10] MEDS: SENNOSIDES-DOCUSATE SODIUM 1 EACH TAB PO SCH (19:54)
[2024-07-11 07:05] LABS: Basophils % (A) 0 %; Eosinophils # (A) 0.1 k/uL (0-0.7); Eosinophils % (A) 2 %; HCT 27.7 % (34.0-46.0); Lymphocytes # (A) 1.2 k/uL (1.0-4.8); Lymphocytes % (A) 16 %; MCH 31.1 pg (25.0-35.0); MCHC 34.2 g/dL (31.0-37.0); MCV 91.1 fL (80.0-100.0); Mean Platelet Volume 8.7; Monocytes # (A) 0.4 k/uL (0-1.0); Monocytes % (A) 6 %; Neutrophils # (A) 5.5 k/uL (1.3-7.7); Neutrophils % (A) 75 %; Platelet Count 189 k/uL (150-450); RBC 3.04 m/uL (3.80-5.40); RDW 14.9 % (11.5-15.5); WBC 7.4 k/uL (3.8-10.6)
[2024-07-11 07:19] LABS: HGB 9.4 gm/dL (11.4-16.0)
[2024-07-11] MEDS: IBUPROFEN 800 MG TAB PO SCH (08:13)
--- NOTE | 2024-07-11 10:37 | P.PN ---
Progress Note - Text Progress Note Date: 07/11/24 (1002) Anesthesia Postop day 1 Subjective: Status Post section with Duramorph. Patient seen and examined. Doing well without complaint. VAS 6 out of 10. Reasonable. No nausea or vomiting. Mild pruritus tolerable.. Denies fever. Gross lower extremity strength intact. Without apparent anesthetic complications. Objective: Vital signs reviewed Heart: Regular Rate Lungs: Good chest excursion Abdomen: Appears nondistended Assessment: Status post section with Duramorph postop day 1 Plan: 1. Continue current care with your medical management. Anticipated end to the duration of the Duramorph around surgery time today. You may see increased pain needs around this time. 2. This note was dictated using [employer] software. Please be advised there is a potential for misspellings or errors in automatic transmission mechanic.
--- NOTE | 2024-07-11 11:47 | P.PNOBGPC ---
Subjective - Subjective Principal diagnosis: Status post primary low transverse postop day 1 Interval history: Patient seen and examined. Denies nausea, vomiting, chest pain, shortness of breath or calf pain. Patient reports: Reports appetite normal, Reports voiding normally, Reports pain well controlled, Reports ambulating normally [place]: doing well Objective - Vital Signs Latest vital signs: Vital Signs Temp Pulse Pulse Resp BP Pulse Ox 07/11/24 08:15 97.6 F 82 16 98/63 98 07/11/24 00:00 98.4 F 101 H 18 120/73 07/10/24 20:00 98.4 F 91 20 133/82 98 07/10/24 17:00 98.3 F 65 16 99/62 100 Intake and Output 07/10/24 07/11/24 07/11/24 22:59 06:59 14:59 Output Total 1000 75 150 Balance -1000 -75 -150 Output: Urine 1000 75 150 Uretheral (Dai) 500 Other: # Voids 1 # Bowel Movements 1 - Exam Lungs: bilateral: normal Chest: Normal S1, Normal S2 Extremities: Present: normal Abdomen: Present: normal appearance, soft. Absent: distention, tenderness Incision: Present: normal, dry, intact Uterus: Present: normal, firm - Labs Labs: Abnormal Lab Results - Last 24 Hours (Table) 07/11/24 Range/Units 06:39 RBC 3.04 L (3.80-5.40) m/uL Hgb 9.4 L D (11.4-16.0) gm/dL Hct 27.7 L (34.0-46.0) % Assessment and Plan (1) 39 weeks gestation of Current Visit: No Status: Resolved Code(s): Z3A.39 - 39 WEEKS GESTATION OF SNOMED Code(s): 34237937 (2) Previous section Current Visit: Yes Status: Resolved Code(s): Z98.891 - HISTORY OF UTERINE SCAR FROM PREVIOUS SURGERY SNOMED Code(s): 840152423 (3) Family planning Current Visit: Yes Status: Resolved Code(s): Z30.09 - ENCOUNTER FOR OTH GENERAL CNSL AND ADVICE ON CONTRACEPTION SNOMED Code(s): 442119234 (4) Status post repeat low transverse section Current Visit: Yes Status: Acute Code(s): Z98.891 - HISTORY OF UTERINE SCAR FROM PREVIOUS SURGERY SNOMED Code(s): 381097175 (5) Status post bilateral salpingectomy Current Visit: Yes Status: Acute Code(s): Z90.79 - ACQUIRED ABSENCE OF OTHER GENITAL ORGAN(S) SNOMED Code(s): 076892978 Plan: 1. Increase ambulation 2. By mouth pain medication
[2024-07-11] MEDS: SIMETHICONE 80 MG CHEWABLE PO PRN (11:48)
--- NOTE | 2024-07-12 08:22 | P.DS ---
Providers Date of admission: 07/10/24 05:57 Expected date of discharge: 07/12/24 Attending physician: Nemo Street Primary care physician: Stated None Hospital Course: 34 year old now POD#2 s/p scheduled repeat section. The c- section was uncomplicated and her post-operative recovery has been unremarkable. The patient is doing well this morning and had no acute events overnight. She has no complaints this morning. She reports minimal lochia, passing flatus, voiding without difficulty, ambulating, and eating/drinking without nausea or vomiting. doing well at bedside. She denies chest pain, shortness of delbert thing, fevers, or chills overnight. She denies pain or swelling in the legs. Postoperative restrictions are reviewed with the patient including pelvic rest for 6 weeks, no lifting heavier than 15 pounds for 6 weeks. The patient is encouraged to call the office if she experiences any heavy bleeding, foul- smelling discharge, breast complaints, or any if she has any other concerns. She will follow up in the office with Dr. Street in 2 weeks for postoperative exam. She will go home with a 3-day supply of oxycodone as well as Motrin and Tylenol as needed for pain. All questions are answered. Assessment: 34 year old POD#2 s/p repeat section Patient Condition at Discharge: Good Plan - Discharge Summary New Discharge Prescriptions: New Docusate [Colace] 100 mg PO BID PRN #60 capsule PRN Reason: Constipation Ibuprofen [Motrin] 600 mg PO Q6HR PRN #30 tab PRN Reason: Mild Pain (Scale 1 To 3) oxyCODONE HCL [Roxicodone] 5 mg PO Q6HR PRN 3 Days #12 tab PRN Reason: Breakthrough Pain Acetaminophen Tab [Tylenol] 650 mg PO Q6H PRN #30 tab PRN Reason: Mild Pain (Scale 1 To 3) Ferrous Sulfate [Iron (65 MG Elemental)] 325 mg PO DAILY #30 tab No Action Pnv No.95/Ferrous Fum/Folic AC [ Multivitamin Tablet] 1 tab PO DAILY Discharge Medication List Pnv No.95/Ferrous Fum/Folic AC [ Multivitamin Tablet] 1 tab PO DAILY 09/20/21 [History] Acetaminophen Tab [Tylenol] 650 mg PO Q6H PRN #30 tab 07/12/24 [Rx] Docusate [Colace] 100 mg PO BID PRN #60 capsule 07/12/24 [Rx] Ferrous Sulfate [Iron (65 MG Elemental)] 325 mg PO DAILY #30 tab 07/12/24 [Rx] Ibuprofen [Motrin] 600 mg PO Q6HR PRN #30 tab 07/12/24 [Rx] oxyCODONE HCL [Roxicodone] 5 mg PO Q6HR PRN 3 Days #12 tab 07/12/24 [Rx] Follow up Appointment(s)/Referral(s): Nemo Street DO [Doctor of Osteopathic Medicine] - 08/24/24 1:30 pm (Post Appointment 07-22-2024 at 11:30am) Activity/Diet/Wound Care/Special Instructions: Instructions 1. Do not begin any exercise program for 3 weeks. 2. Do not resume sexual relations for 6 weeks or longer if uncomfortable. 3. You may take tub baths or showers at any time. 4. You may use tampons if desired after 6 weeks. 5. Keep any areas repaired with stitches clean and dry. 6. If you are not nursing, wear a good fitting, supportive bra during the day and limit fluid intake for at least 1 week to prevent breast engorgement. 7. Call the office, , within the next week to make appointment for your 6 week checkup if it has not already been made. 8. Report any of the following occurrences to the doctor promptly: a. Heavy, excessive bleeding b. Chills, fever c. Burning or frequency of urination d. Pain or redness and breasts if nursing e. Increasing pain or swelling of vulva (stitches). In addition to the above instructions, the following additional should be followed: 1. No heavy lifting or straining (exercising) until after 6 week checkup. 2. Keep abdominal incision clean and dry: You may wear a dressing if more comfortable. 3. Make office appointment for 2 weeks after delivery date. Discharge Disposition: HOME SELF-CARE
[2024-07-12 08:28] VITALS: BP 116/77; PULSE 84; RESP 16; TEMP 97.4
== END 2024-07-12 11:00 | disposition home or self-care (01) | DRG 785 ==
LOC: 4FBP 05:57
PROVIDERS: ADMIT Obstetrics & Gynecology; ATTEND Obstetrics & Gynecology
PROC: 0UB70ZZ Excision of Bilateral Fallopian Tubes, Open Approach (ICD-10-PCS; 2024-07-10)
PROC: 10D00Z1 Extraction of Products of Conception, Low, Open Approach (ICD-10-PCS; principal; 2024-07-10 08:00)
DX: O34.211 Maternal care for low transverse scar from previous cesarean delivery (principal); Z37.0 Single live birth; O99.73 Diseases of the skin and subcutaneous tissue complicating the puerperium; L29.9 Pruritus, unspecified; Z3A.39 39 weeks gestation of pregnancy; Z30.2 Encounter for sterilization; Z88.8 Allergy status to other drugs, medicaments and biological substances
CPT/HCPCS: 85025; 86850; 86900; 86901; 88302